=== PATIENT | female | born 1950 | race Caucasian/White ===

== ENCOUNTER → 2021-07-07 | Outpatient (CLI) | payer MEDICARE ==
[~2021-07-07] MED LIST: ESIDRIX25 MG PO; PRILOSEC 20MG20 MG PO; VALIUM5 MG PO; XANAX0.25 MG PO
== END ==
LOC: MAMMO 07-06 14:30
DX: Z12.31 Encounter for screening mammogram for malignant neoplasm of breast (principal)

== ENCOUNTER → 2021-11-26 | Outpatient (CLI) | payer MEDICARE | LOC: RAD 15:07 | DX: M79.89 Other specified soft tissue disorders (principal); R60.9 Edema, unspecified ==

== ENCOUNTER → 2022-04-12 | Outpatient (CLI) | payer MEDICARE | LOC: RAD 09:00 | DX: Z01.812 Encounter for preprocedural laboratory examination (principal); D25.9 Leiomyoma of uterus, unspecified; I70.0 Atherosclerosis of aorta; R59.0 Localized enlarged lymph nodes | CPT/HCPCS: Q9967 ==

== ENCOUNTER → 2022-11-24 | Outpatient (CLI) | payer MEDICARE | LOC: MAMMO 12:15 | DX: N64.4 Mastodynia (principal); N63.20 Unspecified lump in the left breast, unspecified quadrant; N63.10 Unspecified lump in the right breast, unspecified quadrant ==

== ENCOUNTER 2022-12-18 18:57 | Emergency (ER) | payer MEDICARE ==
[~2022-12-18] VITALS: Ht 160 cm; Wt 70.9 kg
[2022-12-18 19:53] LABS: BASO # 0.03 K/mm3 (0.02-0.10); EOS # 0.12 K/mm3 (0.04-0.40); EOS % 1.2 % (1.0-5.0); HEMATOCRIT 41.3 % (37.0-47.0); HEMOGLOBIN 14.1 g/dL (12.5-16.0); LYMPH# 2.63 K/mm3 (1.50-4.00); MEAN CELL VOLUME 89 fl (78-100); MEAN CORPUSCULAR HEMOGLOBIN 30 pg (27-31); MEAN CORPUSCULAR HGB CONC 34 g/dL (33-37); MEAN PLATELET VOLUME 9.9 fl (7.4-10.4); MONO # 0.59 K/mm3 (0.20-0.80); NEU # 6.41 K/mm3 (1.40-6.50); PLATELET COUNT 305 K/mm3 (130-400); RED BLOOD COUNT 4.65 M/mm3 (4.10-5.30); RED CELL DISTRIBUTION WIDTH 13.1 % (11.5-14.5); WHITE BLOOD COUNT 9.8 K/mm3 (4.8-10.8)
[2022-12-18 20:02] LABS: STREP SCREEN NEGATIVE (NEGATIVE)
[2022-12-18 20:03] LABS: ALBUMIN 4.2 g/dL (3.4-4.8)
[2022-12-18 20:04] LABS: POTASSIUM 3.8 mmol/L (3.5-5.1)
[2022-12-18 20:05] LABS: CALCIUM 9.7 mg/dL (8.3-10.5)
[2022-12-18 20:08] LABS: TOTAL BILIRUBIN 0.3 mg/dL (0.2-1.2)
[2022-12-18 20:41] LABS: URINE APPEARANCE CLEAR; URINE BILIRUBIN NEGATIVE (NEGATIVE); URINE BLOOD NEGATIVE (NEGATIVE); URINE COLOR YELLOW; URINE GLUCOSE NEGATIVE (NEGATIVE); URINE KETONE NEGATIVE (NEGATIVE); URINE LEUKOCYTE ESTERASE NEGATIVE (NEGATIVE); URINE NITRATE NEGATIVE (NEGATIVE); URINE PROTEIN(semi-quant) NEGATIVE (NEGATIVE); URINE UROBILINOGEN NORMAL (NORMAL)
[2022-12-18 21:17] VITALS: BP 166/70
== END 2022-12-18 21:10 | disposition home or self-care (01) ==
LOC: ED 18:57
PROVIDERS: Family Medicine
DX: E87.1 Hypo-osmolality and hyponatremia (principal); Z20.822 Contact with and (suspected) exposure to COVID-19

== ENCOUNTER → 2024-01-02 | Outpatient (CLI) | payer MEDICARE ==
[~2024-01-02] MED LIST changes: +AMITRIPTYLINE H25 M2 PO; +CARAFATE; +FAMOTIDINE20 MG PO; +MACROBID 100 M100 MG PO; +MUPIROCIN2% TP; +NEURONTIN300 MG/CAP PO; +TRAMADOL 50 MG TAB PO; +VALACYCLOVIR1 GM PO; +VALIUM 5MG T5 MG/TAB PO
[2024-01-02 15:14] LABS: URINE COLOR ORANGE (YELLOW)
[2024-01-02 15:15] LABS: PH-URINE 5.5 (5.0 - 8.0); URINE APPEARANCE CLOUDY (CLEAR); URINE BILIRUBIN NEGATIVE (NEGATIVE); URINE BLOOD TRACE-INTACT (NEGATIVE); URINE GLUCOSE TRACE (NEGATIVE); URINE KETONE NEGATIVE (NEGATIVE); URINE LEUKOCYTE ESTERASE 3+ (NEGATIVE); URINE NITRATE POSITIVE (NEGATIVE); URINE PROTEIN(semi-quant) 1+ (NEGATIVE); URINE WBC >50 /hpf (0-3)
== END ==
LOC: LAB 14:38
PROVIDERS: Physician Assistant
DX: N39.0 Urinary tract infection, site not specified (principal)

== ENCOUNTER 2024-03-11 10:48 | Emergency (ER) | payer MEDICARE ==
[~2024-03-11] VITALS: Wt 57.7 kg
[2024-03-11 10:54] VITALS: BP 146/77
[2024-03-11] MEDS ORDERED: DONEPEZIL HCL5 M1 PO (11:00)
[2024-03-11] MEDS ORDERED: PANTOPRAZOLE SO40 MG PO (11:00)
[2024-03-11] MEDS ORDERED: BUSPIRONE HYDRO10 MG PO (11:01)
[2024-03-11] MEDS ORDERED: HCTZ 25MG25 MG PO (11:01)
[2024-03-11] MEDS ORDERED: SINGULAIR 110 MG/TAB PO (11:01)
[2024-03-11] MEDS ORDERED: CARVEDILOL6.25 MG PO (11:01)
[2024-03-11] MEDS ORDERED: NORVASC 10MG10 MG PO (11:01)
[2024-03-11 11:51] LABS: BASO # 0.03 K/mm3 (0.02-0.10); EOS # 0.16 K/mm3 (0.04-0.40); HEMATOCRIT 38.4 % (37.0-47.0); HEMOGLOBIN 12.9 g/dL (12.5-16.0); LYMPH# 1.48 K/mm3 (1.50-4.00); MEAN CELL VOLUME 89 fl (78-100); MEAN CORPUSCULAR HEMOGLOBIN 30 pg (27-31); MEAN CORPUSCULAR HGB CONC 34 g/dL (33-37); MEAN PLATELET VOLUME 9.6 fl (7.4-10.4); MONO # 0.44 K/mm3 (0.20-0.80); NEU # 3.23 K/mm3 (1.40-6.50); PLATELET COUNT 275 K/mm3 (130-400); RED BLOOD COUNT 4.31 M/mm3 (4.10-5.30); RED CELL DISTRIBUTION WIDTH 12.8 % (11.5-14.5); URINE APPEARANCE CLEAR (CLEAR); URINE BILIRUBIN NEGATIVE (NEGATIVE); URINE COLOR YELLOW (YELLOW); URINE GLUCOSE NEGATIVE (NEGATIVE); URINE KETONE NEGATIVE (NEGATIVE); URINE PROTEIN(semi-quant) NEGATIVE (NEGATIVE); WHITE BLOOD COUNT 5.4 K/mm3 (4.8-10.8)
[2024-03-11 11:52] LABS: URINE BLOOD NEGATIVE (NEGATIVE); URINE LEUKOCYTE ESTERASE NEGATIVE (NEGATIVE); URINE NITRATE NEGATIVE (NEGATIVE)
[2024-03-11 12:00] LABS: CALCIUM 9.7 mg/dL (8.3-10.5)
[2024-03-11 12:03] LABS: TOTAL BILIRUBIN 0.4 mg/dL (0.2-1.2)
== END 2024-03-11 12:30 | disposition home or self-care (01) ==
LOC: ED 10:48
PROVIDERS: Physician Assistant
DX: G89.29 Other chronic pain (principal); M25.512 Pain in left shoulder; R51.9 Headache, unspecified; R53.81 Other malaise; R53.83 Other fatigue; E87.1 Hypo-osmolality and hyponatremia

== ENCOUNTER 2024-05-09 18:39 | Emergency (ER) | payer MEDICARE ==
[~2024-05-09] VITALS: Wt 60.9 kg
[~2024-05-09 18:39] MED LIST changes: +BUSPIRONE HYDRO10 MG PO; +CARVEDILOL6.25 MG PO; +DONEPEZIL HCL5 M1 PO; +HCTZ 25MG25 MG PO; +NORVASC 10MG10 MG PO; +PANTOPRAZOLE SO40 MG PO; +SINGULAIR 110 MG/TAB PO
[2024-05-09 20:44] VITALS: BP 129/78
== END 2024-05-09 20:44 | disposition home or self-care (01) ==
LOC: ED 18:39
DX: S00.93XA Contusion of unspecified part of head, initial encounter (principal); W22.8XXA Striking against or struck by other objects, initial encounter

== ENCOUNTER → 2024-11-21 | Outpatient (CLI) | payer MEDICARE ==
[2024-11-21 13:30] LABS: URINE APPEARANCE CLEAR (CLEAR); URINE COLOR YELLOW (YELLOW)
[2024-11-21 13:31] LABS: URINE BILIRUBIN NEGATIVE (NEGATIVE); URINE BLOOD NEGATIVE (NEGATIVE); URINE GLUCOSE NEGATIVE (NEGATIVE); URINE KETONE NEGATIVE (NEGATIVE); URINE LEUKOCYTE ESTERASE NEGATIVE (NEGATIVE); URINE NITRATE NEGATIVE (NEGATIVE); URINE PROTEIN(semi-quant) NEGATIVE (NEGATIVE)
== END ==
LOC: LAB 12:37
PROVIDERS: Nurse Practitioner
DX: R30.0 Dysuria (principal)